=== PATIENT | female | born 1985 | race Caucasian/White ===

== ENCOUNTER 2016-10-30 22:36 | Emergency (ER) | payer MEDICAID ==
[~2016-10-30] VITALS: Ht 154.9 cm; Wt 68.0 kg
[2016-10-30 22:45] VITALS: BP 123/67
== END 2016-10-31 06:00 | disposition left against medical advice (07) ==
LOC: ER 22:36
DX: Z53.21 Procedure and treatment not carried out due to patient leaving prior to being seen by health care provider (principal)